=== PATIENT | male | born 1995 | race Caucasian/White ===

== ENCOUNTER 2017-12-11 09:02 | Emergency (ER) | payer OTHER ==
[2017-12-11] MEDS: TETRACAINE 0.5% 4 ML OPH RIGHT EYE (09:47)
[2017-12-11] MEDS: FLUORESCEIN STRIP RIGHT EYE (09:47)
== END 2017-12-11 11:03 | disposition home or self-care (01) ==
LOC: FTE 09:02
DX: T15.91XA Foreign body on external eye, part unspecified, right eye, initial encounter (principal); X58.XXXA Exposure to other specified factors, initial encounter; Y92.9 Unspecified place or not applicable
CPT/HCPCS: 65205; 99283-25